=== PATIENT | male | born 1990 | race African-American/Black ===

== ENCOUNTER 2016-06-29 23:26 | Emergency (ER) | payer OTHER ==
[~2016-06-29] VITALS: Ht 185.4 cm; Wt 93.4 kg
[~2016-06-29 23:26] MED LIST: AMLO5 PO; HYDR10TA23 PO
[2016-06-29 23:32] VITALS: BP 148/103; PULSE 84; RESP 18; TEMP 98.3; O2SAT 99
[2016-06-29 23:35] VITALS: BP 136/78; PULSE 94; RESP 18; TEMP 98.2; O2SAT 94
--- NOTE | 2016-06-29 23:49 | PD ---
HPI Chief Complaint: palpitations Time Seen by Provider: 23:40 Travel History International Travel<30 days: No Contact w/Intl Traveler<30days: No Traveled to known affect area: No History of Present Illness HPI 25-year-old male with history of hypertension, PVCs, on amlodipine and losartan , here for evaluation because of 2 episodes that occurred within the last 1.5 hours while he was sleeping of feeling as though his heart stopped beating, waking him up suddenly, then resulting in palpitations. At time of my assessment the patient states he feels well. Denies having chest pain. No dyspnea. No fevers, chills, cough, or recent illness. No alcohol or drug use. PFSH Past Medical History Hypertension: Yes Social History Alcohol Use: No Tobacco Use: No Substance Use: No Allergies-Medications (Allergen,Severity, Reaction): Coded Allergies: No Known Allergies (Unverified , 06/30/16) Reported Meds & Prescriptions Reported Meds & Active Scripts Active Reported Zinc (Zinc Gluconate) 50 Mg Tab 50 Mg PO DAILY Magnesium 250 Mg Tab 250 Mg PO DAILY Vitamin D (Cholecalciferol) 5,000 Unit Tab 3,500 Units PO DAILY Vitamin A 25,000 Unit Cap 25,000 Units PO DAILY Losartan (Losartan Potassium) 25 Mg Tab 25 Mg PO DAILY Norvasc (Amlodipine Besylate) 5 Mg Tab 5 Mg PO BID Review of Systems Except as stated in HPI: all other systems reviewed are Neg Physical Exam Narrative GENERAL: Well-developed, well-nourished, comfortable, no acute distress. SKIN: Warm and dry. HEAD: Atraumatic. Normocephalic. EYES: Pupils equal and round. No scleral icterus. No injection or drainage. ENT: Mucous membranes pink and moist. NECK: Trachea midline. No JVD. No nuchal rigidity. CARDIOVASCULAR: Regular rate and rhythm. Distal pulses brisk and equal bilaterally. RESPIRATORY: No accessory muscle use. Clear to auscultation. Breath sounds equal bilaterally. GASTROINTESTINAL: Abdomen soft, non-tender, nondistended. MUSCULOSKELETAL: No obvious deformities. No clubbing. No cyanosis. No edema. NEUROLOGICAL: Awake and alert. No obvious cranial nerve deficits. Motor grossly within normal limits. Normal speech. PSYCHIATRIC: Appropriate mood and affect; insight and judgment normal. Data Data Last Documented VS Vital Signs Date Time Temp Pulse Resp B/P Pulse Ox O2 Delivery O2 Flow Rate FiO2 2/27/17 00:32 16 100 Room Air 06/30/16 00:29 60 150/90 06/29/16 23:35 98.2 Orders Basic Metabolic Panel (Bmp) (06/29/16 23:47) Ckmb (Isoenzyme) Profile (06/29/16 23:47) Complete Blood Count With Diff (06/29/16 23:47) Magnesium (Mg) (06/29/16 23:47) Prothrombin Time / Inr (Pt) (06/29/16 23:47) Act Partial Throm Time (Ptt) (06/29/16 23:47) Troponin I (06/29/16 23:47) Chest, Single Ap (06/29/16 23:47) Ecg Monitoring (06/29/16 23:47) Iv Access Insert/Monitor (06/29/16 23:47) Oximetry (06/29/16 23:47) Sodium Chloride 0.9% Flush (Ns Flush) (06/30/16 00:00) CKMB (06/29/16 23:58) CKMB% (06/29/16 23:58) Potassium Chloride (Kcl) (06/30/16 01:15) Labs Laboratory Tests Test 06/29/16 23:58 White Blood Count 5.5 TH/MM3 Red Blood Count 5.05 MIL/MM3 Hemoglobin 13.6 GM/DL Hematocrit 40.7 % Mean Corpuscular Volume 80.6 FL Mean Corpuscular Hemoglobin 27.0 PG Mean Corpuscular Hemoglobin 33.5 % Concent Red Cell Distribution Width 12.4 % Platelet Count 218 TH/MM3 Mean Platelet Volume 7.6 FL Neutrophils (%) (Auto) 44.5 % Lymphocytes (%) (Auto) 44.9 % Monocytes (%) (Auto) 8.4 % Eosinophils (%) (Auto) 1.3 % Basophils (%) (Auto) 0.9 % Neutrophils # (Auto) 2.4 TH/MM3 Lymphocytes # (Auto) 2.5 TH/MM3 Monocytes # (Auto) 0.5 TH/MM3 Eosinophils # (Auto) 0.1 TH/MM3 Basophils # (Auto) 0.0 TH/MM3 CBC Comment DIFF FINAL Differential Comment Prothrombin Time 11.7 SEC Prothromb Time International 1.1 RATIO Ratio Activated Partial 26.5 SEC Thromboplast Time Sodium Level 140 MEQ/L Potassium Level 3.3 MEQ/L Chloride Level 105 MEQ/L Carbon Dioxide Level 28.5 MEQ/L Anion Gap 7 MEQ/L Blood Urea Nitrogen 16 MG/DL Creatinine 1.20 MG/DL Estimat Glomerular Filtration 90 ML/MIN Rate Random Glucose 107 MG/DL Calcium Level 8.8 MG/DL Magnesium Level 1.6 MG/DL Total Creatine Kinase 464 U/L Creatine Kinase MB 2.5 NG/ML Creatine Kinase MB % 0.5 % Troponin I LESS THAN 0.02 NG/ML MDM Medical Decision Making Medical Screen Exam Complete: Yes Emergency Medical Condition: Yes Interpretation(s) EKG: Sinus, rate 77, normal axis, normal intervals, 1 PVC, no acute ischemic abnormality. Differential Diagnosis Palpitations, dysrhythmia, electrolyte abnormality, anxiety Narrative Course Vital signs reviewed. CBC is unremarkable. BMP is remarkable for potassium 3.3 which was replaced orally, otherwise unremarkable. Cardiac enzymes are negative. Chest x-ray shows no acute disease. The patient was observed in the emergency department on telemetry monitoring without any abnormal events. He is stable for discharge home. He has an appointment with his crutch maker tomorrow. He was informed on when to return to the emergency department. He verbalizes understanding and agreement with plan. Diagnosis Primary Impression: Palpitations Additional Impression: Hypokalemia Referrals: [employer] 1 day Additional Instructions: Follow up with your crutch maker tomorrow as scheduled. Return to the emergency department for worsening symptoms or any other concerns. Disposition: 01 DISCHARGE HOME Condition: Stable Tank Stone MD Jun 29, 2016 23:49
[2016-06-30] VITALS: O2SAT 100
[2016-06-30] MEDS ORDERED: SODIUM CHLORIDE 0.9% FLUSH 5 ML FLUSH IVF PRN
[2016-06-30 00:07] LABS: AUTOMATED NEUTROPHIL # 2.4 TH/MM3 (1.8-7.7); BASOPHIL % 0.9 % (0.0-2.0); EOSINOPHIL # 0.1 TH/MM3 (0-0.4); EOSINOPHIL % 1.3 % (0.0-4.0); HEMATOCRIT 40.7 % (39.0-51.0); HEMO FLAGS DIFF FINAL; LYMPH % 44.9 % (9.0-44.0); LYMPHOCYTE # 2.5 TH/MM3 (1.0-4.8); MEAN CELL VOLUME 80.6 FL (80.0-100.0); MEAN CORPUSCULAR HGB CONC 33.5 % (32.0-36.0); MONO % 8.4 % (0.0-8.0); NEUT % 44.5 % (16.0-70.0); PLATELET COUNT 218 TH/MM3 (150-450); RED BLOOD COUNT 5.05 MIL/MM3 (4.50-5.90); RED CELL DISTRIBUTION WIDTH 12.4 % (11.6-17.2); WHITE BLOOD COUNT 5.5 TH/MM3 (4.0-11.0)
[2016-06-30 00:19] LABS: CHLORIDE 105 MEQ/L (98-107); POTASSIUM 3.3 MEQ/L (3.5-5.1); SODIUM (NA) 140 MEQ/L (136-145)
[2016-06-30] MEDS ORDERED: VITA20003 (00:21)
[2016-06-30] MEDS ORDERED: CHEL50TA PO (00:21)
[2016-06-30] MEDS ORDERED: CHOL50006 PO (00:21)
[2016-06-30] MEDS ORDERED: [UNRECOGNIZED DRUG - CODE] PO (00:21)
[2016-06-30] MEDS ORDERED: LOSA25TA PO (00:21)
[2016-06-30] MEDS ORDERED: ESSE250T PO (00:21)
[2016-06-30 00:22] LABS: ANION GAP 7 MEQ/L (5-15); BICARBONATE 28.5 MEQ/L (21.0-32.0); BLOOD UREA NITROGEN 16 MG/DL (7-18); MAGNESIUM 1.6 MG/DL (1.5-2.5)
[2016-06-30 00:24] LABS: APTT (PATIENT) 26.5 SEC (24.3-30.1); INTERNATIONAL NORMALIZED RATIO 1.1 RATIO; PROTHROMBIN TIME - PATIENT 11.7 SEC (9.8-11.6)
[2016-06-30 00:29] VITALS: BP 150/90; PULSE 60; RESP 16; O2SAT 100
[2016-06-30 00:44] LABS: CREATINE KINASE 464 U/L (39-308); GLOMERULAR FILTRATION RATE 90 ML/MIN (>89)
--- NOTE | 2016-06-30 00:51 | RADHPO ---
EXAM DATE/TIME: 06/30/2016 00:16 [facility] COMPARISON: No previous studies available for comparison. INDICATIONS : Chest pain. MEDICAL HISTORY : None. SURGICAL HISTORY : None. ENCOUNTER: Initial ACUITY: 1 day PAIN SCORE: 7/10 LOCATION: Bilateral chest FINDINGS: A single view of the chest demonstrates the lungs to be symmetrically aerated without evidence of mas s, infiltrate or effusion. The cardiomediastinal contours are unremarkable. Osseous structures are intact. CONCLUSION: No acute disease. Michael Yoo MD on June 30, 2016 at 0:49 Board Certified Radiologist. This report was verified electronically.
[2016-06-30 00:57] LABS: CKMB 2.5 NG/ML (0.5-3.6)
[2016-06-30 01:15] VITALS: BP 141/91; PULSE 63; RESP 16; O2SAT 99
[2016-06-30] MEDS ORDERED: POTASSIUM CHLORIDE 20 MEQ CONTROLLED RELEASE TAB PO ONE (01:15)
--- NOTE | 2016-06-30 12:33 | EKG ---
Date Performed: 06/29/2016 Time Performed: 23:38:46 PTAGE: 25 years EKG: Sinus rhythm . Normal ECG NO PREVIOUS TRACING DOCTOR: Jose Eduardo Zamudio Interpretating Date/Time 06/30/2016 12:30:09
== END 2016-06-30 01:29 | disposition home or self-care (01) ==
LOC: PHED 23:26
DX: R00.2 Palpitations (principal); E87.6 Hypokalemia; I10 Essential (primary) hypertension
CPT/HCPCS: 71010; 80048; 82550; 82552; 83735; 84484; 85025; 85610; 85730; 93005; 99284